=== PATIENT | female | born 1985 | race Caucasian/White ===

== ENCOUNTER 2020-12-30 16:04 | Emergency (ER) | payer OTHER ==
[~2020-12-30 16:04] MED LIST: ALINIA500 MG PO; BENTYL 20MG TAB20 MG PO; FERROUS SULFAT325 MG PO; PRENATAL 19 TA1 EAC1 PO; PRENATAL VITAM1 EAC4 PO; PROVERA10 MG PO; SPRINTEC 28 DA1 EACH PO; ZOFRAN ODT 4 MG4 MG PO
[2021-01-03 07:08] LABS: CHLAMYDIA TRACHOMATIS, NAA Negative (Negative); NEISSERIA GONORRHOEAE, NAA Negative (Negative)
== END 2020-12-30 23:15 | disposition home or self-care (01) ==
LOC: ER1 16:04
DX: A59.01 Trichomonal vulvovaginitis (principal); F17.200 Nicotine dependence, unspecified, uncomplicated
CPT/HCPCS: 81001; 84703; 87086; 99283

== ENCOUNTER 2021-08-18 06:13 | Emergency (ER) | payer OTHER | END 2021-08-18 07:35 | disposition home or self-care (01) | LOC: ER1 06:13 | DX: S09.90XA Unspecified injury of head, initial encounter (principal); F17.210 Nicotine dependence, cigarettes, uncomplicated; W22.8XXA Striking against or struck by other objects, initial encounter | CPT/HCPCS: 70450; 99284 ==

== ENCOUNTER 2021-12-31 18:01 | Emergency (ER) | payer OTHER ==
[2021-12-31 20:31] LABS: HEMOGLOBIN 12.4 gm/dl (12.3-15.3); RED BLOOD COUNT 4.97 M/UL (4.00-5.10); WHITE BLOOD COUNT 13.4 K/UL (4.5-11.0)
[2021-12-31 20:53] LABS: BUN/CREATININE RATIO 20 (0-10)
== END 2022-01-01 13:40 | disposition left against medical advice (07) ==
LOC: ER1 18:01
PROVIDERS: Emergency Medicine
DX: O99.341 Other mental disorders complicating pregnancy, first trimester (principal); F69 Unspecified disorder of adult personality and behavior; Z20.822 Contact with and (suspected) exposure to COVID-19
CPT/HCPCS: 0241U; 80053; 82550; 82553; 83735; 84484; 84702; 85025; 86900; 86901; 93005; 99283; G0480

== ENCOUNTER 2022-01-12 11:46 | Emergency (ER) | payer OTHER | END 2022-01-12 16:44 | disposition left against medical advice (07) | LOC: ER1 11:46 | DX: O99.341 Other mental disorders complicating pregnancy, first trimester (principal); F29 Unspecified psychosis not due to a substance or known physiological condition; F22 Delusional disorders | CPT/HCPCS: 99283 ==